=== PATIENT | female | born 1995 | race Caucasian/White ===

== ENCOUNTER 2021-11-23 18:12 | Emergency (ER) | payer OTHER ==
[2021-11-23 19:37] LABS: HEMOGLOBIN 12.6 gm/dl (12.3-15.3); RED BLOOD COUNT 4.13 M/UL (4.00-5.10); WHITE BLOOD COUNT 9.7 K/UL (4.5-11.0)
[2021-11-23 19:52] LABS: BUN/CREATININE RATIO 14 (0-10)
[2021-11-23] MEDS ORDERED: ALBUTEROL2.5 MG/3 M INH (21:13)
[2021-11-23] MEDS ORDERED: PROAIR HFA8.5 GM INH (21:13)
== END 2021-11-23 21:17 | disposition home or self-care (01) ==
LOC: ER1 18:12
PROVIDERS: Physician Assistant
DX: U07.1 COVID-19 (principal); R33.9 Retention of urine, unspecified; Z76.0 Encounter for issue of repeat prescription
CPT/HCPCS: 51702; 51798; 80048; 81001; 85025; 87086; 99283

== ENCOUNTER 2021-12-21 14:45 | Emergency (ER) | payer OTHER ==
[~2021-12-21 14:45] MED LIST: ALBUTEROL2.5 MG/3 M INH; PROAIR HFA8.5 GM INH
[2021-12-21 15:45] LABS: HEMOGLOBIN 13.1 gm/dl (12.3-15.3); RED BLOOD COUNT 4.29 M/UL (4.00-5.10); WHITE BLOOD COUNT 8.5 K/UL (4.5-11.0)
[2021-12-21 16:06] LABS: BUN/CREATININE RATIO 20 (0-10)
[2021-12-21] MEDS ORDERED: VALTREX1000 MG PO (18:52)
[2021-12-21] MEDS ORDERED: PREDNISONE50 MG PO (18:52)
== END 2021-12-21 19:13 | disposition home or self-care (01) ==
LOC: ER1 14:45 → CDU 18:06 → ER1 18:06
PROVIDERS: Physician Assistant Medical
DX: I49.8 Other specified cardiac arrhythmias (principal); Z20.822 Contact with and (suspected) exposure to COVID-19
CPT/HCPCS: 36415; 70450; 71045; 80053; 82550; 82553; 83690; 83880; 84439; 84443; 84484; 84703; 85025; 85379; 93005; 99285; U0002

== ENCOUNTER 2022-05-07 14:21 | Emergency (ER) | payer OTHER ==
[~2022-05-07 14:21] MED LIST changes: +PREDNISONE50 MG PO; +VALTREX1000 MG PO
[2022-05-07 16:23] LABS: HEMOGLOBIN 12.7 gm/dl (12.3-15.3); RED BLOOD COUNT 4.11 M/UL (4.00-5.10); WHITE BLOOD COUNT 5.2 K/UL (4.5-11.0)
[2022-05-07 17:22] LABS: BUN/CREATININE RATIO 9 (0-10)
== END 2022-05-07 21:20 | disposition short-term general hospital (02) ==
LOC: ER1 14:21
PROVIDERS: Physician Assistant
DX: N39.0 Urinary tract infection, site not specified (principal); M54.50 Low back pain, unspecified; R20.2 Paresthesia of skin; G89.29 Other chronic pain; R79.89 Other specified abnormal findings of blood chemistry; R55 Syncope and collapse; Z90.89 Acquired absence of other organs; Z90.710 Acquired absence of both cervix and uterus; Z88.0 Allergy status to penicillin
CPT/HCPCS: 80053; 80307; 81001; 82550; 82553; 84484; 85025; 85652; 86140; 93005; 96374; 99285; J1885